=== PATIENT | male | born 1980 | race Native Hawaiian/Other Pacific Islander ===

== ENCOUNTER → 2016-10-08 | Outpatient (CLI) | payer BC ==
--- NOTE | 2016-10-08 12:28 | MR ---
EXAMINATION TYPE: MR lumbar spine wo con DATE OF EXAM: 10/08/2016 COMPARISON: NONE HISTORY: CONTRAST: 0 mL intravenous . TECHNIQUE: Multiplanar, multisequence images of the lumbar spine were acquired. FINDINGS: Cord terminates at the T12 level. Disc desiccation to mild degree is present L4-5 L5-S1. L5-S1: There is broad-based right paracentral disc herniation. This has some left S1 nerve root displ acement. Compression is not identified. An AP spinal canal stenosis is not evident. Neural foramen ar e patent. L4-L5: Broad-based disc bulge has mild anterior thecal sac contact. Some slight asymmetric bulge into the right paracentral region has slightly greater = compression. Exiting nerve root compression or d isplacement is not identified. No spinal canal stenosis present. Neural foramen are patent. L3-L4: No significant disc bulge or disc herniation. No spinal canal stenosis. No foraminal stenosi s. . L2-L3: No significant disc bulge or disc herniation. No spinal canal stenosis. No foraminal stenosi s. . L1-L2: No significant disc bulge or disc herniation. No spinal canal stenosis. No foraminal stenosi s. . T12-L1: No significant disc bulge or disc herniation. No spinal canal stenosis. No foraminal stenos is. . IMPRESSION: 1. Moderate to large right paracentral disc herniation with moderate right anterior thecal sac compre ssion. Some right S1 nerve root contact and displacement is present without obvious compression. No s tenosis is present. 2. Small disc bulge slightly greater focal bulging into the right paracentral region L4-5 without ner ve root contact or stenosis.
== END | disposition home or self-care (01) ==
LOC: RADMRIMAIN 11:37
PROVIDERS: ATTEND Internal Medicine
DX: M51.26 Other intervertebral disc displacement, lumbar region (principal); G95.29 Other cord compression
CPT/HCPCS: 72148